=== PATIENT | female | born 1940 | race African-American/Black ===

== ENCOUNTER 2018-04-30 10:59 | Outpatient (CLI) | payer MEDICARE ==
--- NOTE | 2018-04-30 13:10 | Mammography Report ---
BILATERAL DIGITAL SCREENING MAMMOGRAM with CAD: 04/30/18 10:59:00 CLINICAL: Routine screening.History of a benign left surgical biopsy. COMPARISON:09/16/16 FINDINGS: The breasts are heterogeneously dense, which may obscure small masses. Stable left postsurgical scar. Bilateral benign calcifications. Right symmetries on both views require additional imaging.No architectural distortion or suspicious calcifications. IMPRESSION: Right asymmetries requiring further workup. BI-RADS CATEGORY: 0 -- Additional Imaging Evaluation Required RECOMMENDATION: Recall for right lateralmedial , spot compression CC and MLO views and right breast ultrasound if needed. ACR BI-RADS MAMMOGRAPHIC CODES: 0 = Needs additional imaging evaluation; 1 = Negative; 2 = Benign; 3 = Probably benign; 4 = Suspicious; 5 = Malignant; 6 = Known biopsy-proven malignancy COMMENT: 1. Dense breast tissue, i.e., adenosis, fibrocystic changes, etc., may obscure an underlying neoplasm. 2. Approximately 10% of cancers are not detected with mammography. 3. A negative mammography report should not delay biopsy if a clinically suspicious mass is present. COMMENT: Patient follow-up letters are generated via our [employer] application.
== END 2018-04-30 11:00 | disposition home or self-care (01) ==
LOC: MAMMO 10:59
PROVIDERS: ATTEND Internal Medicine
DX: Z12.31 Encounter for screening mammogram for malignant neoplasm of breast (principal)
CPT/HCPCS: 77067

== ENCOUNTER → 2018-05-09 | Outpatient (CLI) | payer MEDICARE ==
--- NOTE | 2018-05-09 15:04 | Mammography Report ---
RIGHT DIGITAL DIAGNOSTIC MAMMOGRAM and RIGHT BREAST ULTRASOUND: 05/09/18 13:36:00 CLINICAL: Recalled for asymmetries. COMPARISON:04/30/18 screening FINDINGS: Lateralmedial, spot compression MLO and CC and exaggerated CC views were performed. The previously described more anterior and medial asymmetry demonstrates satisfactory effacement with spot compression. A more posterior retroareolar asymmetry persists with spot compression area measures approximately 1 cm and has a partially circumscribed margin. It is not identified on a lateral view and appears to be at the edge of the image far posterior to the nipple on an exaggerated CC view. Ultrasound of the right breast was performed and demonstrated no mass, cyst or shadowing to correlate with the far posterior asymmetry. A tiny cyst at 1 o'clock 4 cm from the nipple measures 3 x 2 x 1 mm. IMPRESSION: A probably benign mammographic asymmetry with a negative ultrasound. BI-RADS CATEGORY: 3 - - Probably Benign RECOMMENDATION: Six month followup right mammogram and right breast ultrasound if needed. ACR BI-RADS MAMMOGRAPHIC CODES: 0 = Needs additional imaging evaluation; 1 = Negative; 2 = Benign; 3 = Probably benign; 4 = Suspicious; 5 = Malignant; 6 = Known biopsy-proven malignancy COMMENT: 1. Dense breast tissue, i.e., adenosis, fibrocystic changes, etc., may obscure an underlying neoplasm. 2. Approximately 10% of cancers are not detected with mammography. 3. A negative mammography report should not delay biopsy if a clinically suspicious mass is present. COMMENT: Patient follow-up letters are generated via our [employer] application.
== END | disposition home or self-care (01) ==
LOC: MAMMO 13:36
PROVIDERS: ATTEND Internal Medicine
DX: R92.8 Other abnormal and inconclusive findings on diagnostic imaging of breast (principal)

== ENCOUNTER 2019-02-12 08:00 | Outpatient (CLI) | payer MEDICARE ==
--- NOTE | 2019-02-12 11:24 | Ultrasound Report ---
RIGHT DIGITAL DIAGNOSTIC MAMMOGRAM with CAD and RIGHT BREAST ULTRASOUND: 02/12/19 08:00:00 CLINICAL: Follow-up mammographic asymmetry. COMPARISON:05/09/18 FINDINGS: The breast is heterogeneously dense, which may obscure small masses. An oval asymmetry just below the nipple line on the MLO view demonstrates satisfactory effacement on spot compression. A persistent poorly marginated posterior asymmetry on an exaggerated CC view. Scattered benign calcifications. Ultrasound of the right breast was performed from 3 o'clock to 9 o'clock and demonstrated normal structures. No mass, cyst or shadowing. IMPRESSION: No mammographic evidence of malignancy.A benign outer posterior asymmetry. BI-RADS CATEGORY: 2 -- Benign RECOMMENDATION: Return to routine mammographic screening. COMMENT: 1. Dense breast tissue, i.e., adenosis, fibrocystic changes, etc., may obscure an underlying neoplasm. 2. Approximately 10% of cancers are not detected with mammography. 3. A negative mammography report should not delay biopsy if a clinically suspicious mass is present. COMMENT: Patient follow-up letters are generated by our [employer] application.
== END 2019-02-12 08:01 | disposition home or self-care (01) ==
LOC: MAMMO 08:00
PROVIDERS: ATTEND Internal Medicine
DX: N64.89 Other specified disorders of breast (principal)